=== PATIENT | male | born 1985 | race Caucasian/White ===

== ENCOUNTER 2021-10-16 20:10 | Emergency (ER) | payer BC, SELFPAY ==
[2021-10-16] VITALS (21 sets, daily range): BP systolic 169–188; BP diastolic 107–117; PULSE 71–86; RESP 13–26; O2SAT 94–97
--- NOTE | ~2021-10-16 | CT_ITS ---
EXAMINATION: CT BRAIN W/O DATE: 10/16/2021 20:23 INDICATION: Left facial drooping. Slurred speech. TECHNIQUE: Computed tomography (CT) of the head was performed without intravenous contrast. The dose- length product was 681.00 mGy-cm. Automated exposure control and iterative reconstruction technique w ere employed. COMPARISON: No prior studies for comparison. FINDINGS: Normal brain parenchymal volume for age. Normal graham-white differentiation. No acute intrac ranial hemorrhage, infarction, mass or mass effect. No ventriculomegaly or midline shift. Midline sagittal images demonstrate a normal corpus callosum, c raniovertebral junction and sella turcica. Basilar cisterns are patent. Moderate mucosal thickening of the paranasal sinuses. IMPRESSION: 1. No acute intracranial abnormality. As per stroke protocol, I called these results to emergency room, discussed with Mai Portillo at 10/16 20:27 CDT. Reviewed, dictated and finalized at location A. IMPRESSION: 1. No acute intracranial abnormality. As per stroke protocol, I called these results to emergency room, discussed wit janene Portillo at 10/16/2021 20:27 CDT.
--- NOTE | ~2021-10-16 | XR_ITS ---
EXAMINATION: XR chest 1V portable 10/16/2021 20:37 INDICATION: Facial drooping PROCEDURE: AP portable chest COMPARISON: 08/31/2008 FINDINGS: The lungs are clear. The cardiomediastinal silhouette is within normal limits. There are no pleural effusions. There is no pneumothorax suspected. IMPRESSION: 1: NO ACUTE CARDIOPULMONARY DISEASE. Reviewed, dictated and finalized at location A.
--- NOTE | 2021-10-16 20:15 | ECG_ITS ---
Measurements Intervals [place] Rate: 80 P: 9 IA: 148 QRS: 24 QRSD: 96 T: 35 QT: 361 QTc: 419 Interpretive Statements SINUS RHYTHM INCOMPLETE RIGHT BUNDLE BRANCH BLOCK BASELINE ARTIFACT- I, II, AVR BORDERLINE ECG Electronically Signed On 10-17-2021 6:34:34 CDT by Myron Gordillo D.O.
[2021-10-16 20:23] LABS: Glucose Point of Care 154 mg/dl (65-105)
[2021-10-16 20:25] LABS: Basophils Absolute Auto 0.1 K/mm3 (0.0-0.1); Basophils Percent Auto 0.6 % (0.2-1.2); Eosinophils Absolute Auto 0.9 K/mm3 (0-0.3); Eosinophils Percent Auto 8.1 % (0-4.4); Hematocrit 44.7 % (42.0-52.0); Immature Granulocyte Absolute 0.04 K/mm3 (0.00-0.031); Immature Granulocyte Percent A 0.4 % (0-0.5); Lymphocytes Percent Auto 30.6 % (18.3-44.2); Mean Corpuscular HGB Conc 33.6 g/dl (32-36); Mean Corpuscular Hemoglobin 29.1 pg (26-34); Mean Corpuscular Volume 86.6 fl (80-100); Mean Platelet Volume 9.5 fl (7.4-10.4); Monocytes Absolute Auto 0.9 K/mm3 (0.1-0.6); Monocytes Percent Auto 8.1 % (2.6-8.5); Neutrophils Absolute Auto 5.5 K/mm3 (1.3-6.7); Neutrophils Percent Auto 52.2 % (45.5-73.1); Platelet Count Result 225 k/mm3 (150-375); Red Blood Count 5.16 M/mm3 (4.6-6.20); Red Cell Distribution Width 13.7 % (11.5-14.5); White Blood Count 10.5 K/mm3 (4.5-10.0)
[2021-10-16 20:35] LABS: Partial Thromboplastin Time 29.6 SECONDS (22.3-36.8)
[2021-10-16 20:36] LABS: Alanine Aminotransferase 30 U/L (6-50); Albumin Level 4.6 g/dL (3.5-5.1); Alkaline Phosphatase 87 U/L (38-126); Anion Gap 8 mmol/L (8-16); Aspartate Amino Transferase 25 U/L (17-59); Bilirubin,Total 0.3 mg/dL (0.2-1.3); Blood Urea Nitrogen 14 mg/dL (9-20); Calcium 9.1 mg/dL (8.4-10.2); Carbon Dioxide 26 mmol/L (22-30); Chloride 103 mmol/L (98-107); Estimated Glomerular Filt Rate > 60; Glucose 143 mg/dL (65-110); Potassium 3.9 mmol/L (3.4-5.0); Sodium 137 mmol/L (137-145)
[2021-10-16 20:43] LABS: INR 1.1; Prothrombin Time 13.5 Seconds (11.1-14.7)
[2021-10-16 20:48] LABS: Troponin I < 0.012 ng/mL (0.000-0.034)
--- NOTE | 2021-10-16 20:57 | ED.NEUROSD ---
HPI - Neuro Symptoms/Deficit General Chief Complaint: Neuro Symptoms/Deficit Stated Complaint: facial/tongue numbness, htn Time Seen by Provider: 10/16/21 20:19 Source: patient Mode of arrival: ambulatory Limitations: no limitations History of Present Illness HPI Narrative: This is a 36-year-old male that presents to the emergency department for right-sided facial weakness noted since he woke up. Reports a couple of days ago he noted some abnormal taste. Today when he woke up he noticed the right side of his face felt tight. He is unable to raise his right eyebrow. Reports some pressure in his right ear. Denies vision changes, vomiting, or other focal numbness or weakness. Related Data Allergies Allergy/AdvReac Type Severity Reaction Status Date / Time No Known Allergies Allergy Unverified 11/04/15 12:19 Review of Systems Review of Systems: CONSTITUTIONAL: Denies fever EYES: Reports visual changes SKIN: Denies rash NEUROLOGIC: Reports numbness and weakness. Denies headache All systems reviewed & are unremarkable except as noted in HPI and below PMFSH Past Medical History Medical History (Updated 10/17/21 @ 00:11 by Mai Portillo PA-C) History of hypertension Social History Social History (Updated 10/16/21 @ 21:07 by Mai Portillo PA-C) Smoking status: Former smoker Exam Narrative: GENERAL: Well-appearing, well-nourished, and in no acute distress. HEAD: Normocephalic, atraumatic. EYES: PERRLA and EOMI. ENT: Nares clear, no rhinorrhea or epistaxis. Mucous membranes moist. Oropharynx without tonsillar hypertrophy exudate or other lesions. Bilateral TMs pearly graham non-bulging NECK: Supple. No adenopathy or masses. CHEST: Clear to auscultation. No respiratory distress. No wheezes rales or rhonchi HEART: Regular rate and rhythm. No murmur heard. Normal peripheral pulses. EXTREMITIES: Normal range of motion. No edema. Strength equal in bilateral upper and lower extremities (5/5) SKIN: Warm, dry, no rash. NEURO: Alert and oriented x3. 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 Noted since he woke up this morning. Did have some prodromal change in taste. 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 Patient also noted to be hypertensive. He does report history of hypertension, but that he has been off of his medication for this for some time. Otherwise his vitals are stable and he is otherwise neurologically intact. CBC without concerning findings. Metabolic panel with elevation of blood glucose. Hemoglobin A1c was sent and this is elevated at 6.7. Patient will be started on metformin. CT scan of the brain is without acute findings. Chest x-ray without acute cardiopulmonary abnormality. EKG shows normal sinus rhythm. Patient and family updated on case findings. Patient will be started on antiviral and steroid for Velez's palsy. Will be started on antihypertensive as well. He does report he has follow-up with his primary care doctor in the morning. He is stable and felt appropriate for further outpatient evaluation. He was given warnings to return to the ER Lab Data Attestation: I reviewed the patient's lab results. Result diagrams: 10/16/21 20:19 10/16/21 20:19 Labs: Lab Results 10/16/21 10/16/21 10/16/21 Range/Units 20:18 20:19 20:19 WBC 10.5 H (4.5-10.0) K/mm3 RBC 5.16 (4.6-6.20) M/mm3 Hgb 15.0 (14.0-18.0) g/dL Hct 44.7
[2021-10-16 21:24] LABS: Glucose Point of Care 160 mg/dl (65-105)
[2021-10-16] MEDS: hydrALAZINE HCL 20 MG/ML VIAL 10 MG IV PUSH (21:58)
[2021-10-16 22:25] LABS: Hemoglobin A1C 6.7 % (<5.7)
--- NOTE | 2021-10-16 23:39 | PC.NURSE ---
Assuming care of pt.
[2021-10-17 00:37] VITALS: BP 167/98; PULSE 88; RESP 20; O2SAT 100
== END 2021-10-17 00:38 | disposition home or self-care (01) ==
PROVIDERS: Physician Assistant; Emergency Provider Emergency Medicine; PCP Family Medicine
DX: G51.0 Bell's palsy (principal); E11.9 Type 2 diabetes mellitus without complications; I10 Essential (primary) hypertension; Z87.891 Personal history of nicotine dependence
CPT/HCPCS: 36415; 70450; 71045; 80053; 82948; 83036; 84484; 85025; 85610; 85730; 93005; 96374; 99284; J0360

== ENCOUNTER 2024-11-29 11:02 | Outpatient (CLI) | payer BC, SELFPAY ==
--- NOTE | ~2024-11-29 | XR_ITS ---
XR ankle LT 2V 11/29/2024 11:18 Indication: Left ankle pain Procedure: 2 views left ankle Comparison: No prior studies for comparison. Findings: There is mild degenerative changes at the tibiotalar joint anteriorly. No fracture or traumatic malalignment. Talar dome is unremarkable without evidence for osteochondral defect. No significant soft tissue abnormality. 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 Reviewed, dictated and finalized at location O. 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
--- NOTE | ~2024-11-29 | XR_ITS ---
XR ankle RT 2V 11/29/2024 11:18 Indication: Right ankle pain Procedure: 2 views right ankle Comparison: No prior studies for comparison. Findings: There is an osteochondral defect lateral aspect of the talar dome. No acute fracture or traumatic malalignment. There is sclerosis of the talar dome, suspicious for avascular necrosis. Small degenerative calcaneal enthesophytes. Impression: 1: Small osteochondral defect lateral aspect of the talar dome with possible avascular necrosis. Reviewed, dictated and finalized at location O. Impression: 1: Small osteochondral defect lateral aspect of the talar dome with possible av ascular necrosis.
== END 2024-11-29 11:03 | disposition home or self-care (01) ==
PROVIDERS: PCP Emergency Medicine; Visit Provider Emergency Medicine
DX: M93.272 Osteochondritis dissecans, left ankle and joints of left foot (principal); M19.09 Primary osteoarthritis, other specified site
CPT/HCPCS: 73600